=== PATIENT | male | born 1990 | race American Indian/Alaskan Native ===

== ENCOUNTER 2017-04-04 07:27 | Emergency (ER) | payer OTHER ==
[2017-04-04] MEDS ORDERED: TORADOL IV ONE (09:54)
[2017-04-04] MEDS ORDERED: NACL 0.9% 1000 ML 1,000 ML IV ONE (09:54)
--- NOTE | 2017-04-04 09:56 | Emergency Department Report ---
ED General Adult HPI - General Chief complaint: Skin/Abscess/Foreign Body Stated complaint: R SIDE CHEST SWOLLEN/POSS INSECT BITE Time Seen by Provider: 04/04/17 09:45 Source: patient Mode of arrival: Ambulatory Limitations: No Limitations - History of Present Illness Initial comments: PT states he had a bug bite on his R chest wall that he noticed 1 week ago. PT tried to treat with home remedies, pt states he applied ICEY HOT. Pt states that the swelling and redness has gotten bigger. PT states last night he applied peroxide and the site started draining blood last night. PT states this morning, his pain was so severe, that he could not lift his R arm. Complaint: abscess Onset/Timin -: Gradual, week(s) Location: chest Radiation: non-radiation Severity scale (0 -10): 7 Quality: constant Consistency: constant Improves with: none Worsens with: movement Associated Symptoms: chest pain (at site of infection ), fever/chills. denies: loss of appetite, nausea/vomiting Treatments Prior to Arrival: none - Related Data Previous Rx's Medication Instructions Recorded Last Taken Type Acetaminophen/Codeine [Tylenol #3] 1 tab PO Q6H PRN #12 tab 04/04/17 Unknown Rx Clindamycin [Clindamycin CAP] 300 mg PO Q8H #30 cap 04/04/17 Unknown Rx Ibuprofen [Motrin] 600 mg PO Q8H PRN #15 tablet 04/04/17 Unknown Rx metFORMIN [Glucophage] 500 mg PO QDAY #30 tab 04/04/17 Unknown Rx Allergies Allergy/AdvReac Type Severity Reaction Status Date / Time No Known Allergies Allergy Unverified 04/04/17 07:55 ED Review of Systems ROS: Stated complaint: R SIDE CHEST SWOLLEN/POSS INSECT BITE Other details as noted in HPI Comment: All other systems reviewed and negative Constitutional: chills, fever Cardiovascular: chest pain (at site of infection ) Endocrine: denies: increased thirst, increased urine Gastrointestinal: denies: abdominal pain, nausea, vomiting Skin: rash, change in color ED Past Medical Hx - Past Medical History Previous Medical History?: Yes Hx Diabetes: Yes - Surgical History Past Surgical History?: No - Social History Smoking Status: Current Some Day Smoker Substance Use Type: Alcohol - Medications Home Medications: Home Medications Medication Instructions Recorded Confirmed Last Taken Type Acetaminophen/Codeine [Tylenol #3] 1 tab PO Q6H PRN #12 tab 04/04/17 Unknown Rx Clindamycin [Clindamycin CAP] 300 mg PO Q8H #30 cap 04/04/17 Unknown Rx Ibuprofen [Motrin] 600 mg PO Q8H PRN #15 tablet 04/04/17 Unknown Rx metFORMIN [Glucophage] 500 mg PO QDAY #30 tab 04/04/17 Unknown Rx ED Physical Exam - General Limitations: No Limitations General appearance: alert, in no apparent distress - Head Head exam: Present: atraumatic, normocephalic, normal inspection - Eye Eye exam: Present: normal appearance, EOMI. Absent: conjunctival injection - ENT ENT exam: Present: normal exam, normal external ear exam - Neck Neck exam: Present: normal inspection, full ROM. Absent: tenderness, lymphadenopathy - Respiratory Respiratory exam: Present: normal lung sounds bilaterally, chest wall tenderness (to abscess and surrounding cellulitis on R chest wall. cellulitis extends from sternum to mid axilla ). Absent: respiratory distress, wheezes - Cardiovascular Cardiovascular Exam: Present: regular rate, normal rhythm, normal heart sounds - GI/Abdominal GI/Abdominal exam: Present: soft. Absent: tenderness - Extremities Exam Extremities exam: Present: normal inspection, full ROM. Absent: tenderness - Back Exam Back exam: Present: normal inspection, full ROM - Neurological Exam Neurological exam: Present: alert, oriented X3 - Psychiatric Psychiatric exam: Present: normal affect, normal mood - Skin Skin exam: Present: warm, dry, intact, erythema (to R chest wall ) - Expanded Skin Exam Expanded Distribution of rash: chest Description of rash: Present: erythematous, fluctuant, indurated, other (PT has a R chest wall abscess with small area of fluctuance surrounded by indurated area and cellulitis ) ED Course Vital Signs 04/04/17 04/04/17 04/04/17 07:51 10:28 10:58 Temperature 98.6 F Pulse Rate 95 H Respiratory 16 18 18 Rate Blood Pressure 139/85 O2 Sat by Pulse 100 Oximetry 04/04/17 11:45 Temperature Pulse Rate Respiratory 18 Rate Blood Pressure O2 Sat by Pulse Oximetry - Reevaluation(s) Reevaluation #1: 04/04/17 09:58 PT aware of plan of care. PT has no questions at this time Reevaluation #2: 04/04/17 12:12 PT tolerated the I and D well. PT states he is out of Metformin. Will refill. PT aware he will need to return in 2 days. PT has no questions at this time. - I & D Right Anterior Chest Type of Procedure: Complex Site: R chest wall Blade Size: 11 I & D Procedure: betadine prep, sterile drapes applied, sterile dressing applied , gauze wick placed (1/4 iodofoam packing placed ) Progress: skin cleansed with betadine. 2 mls 1% lidocaine used to anaesthetize the area. 11 blade used to make an incision, copious amount of purulent drainage noted. site flushed with sterile NS. and packing placed. pt tolerated the procedure well. no immediate compilations - Pulse Oximetry Interpretation Digit-Finger Initial Pulse Oximetry Readin Actions Taken: none ED Medical Decision Making - Lab Data Result diagrams: 04/04/17 09:54 04/04/17 09:54 Lab Results 04/04/17 04/04/17 04/04/17 Range/Units 09:54 09:54 10:41 WBC 10.0 (4.5-11.0) K/mm3 RBC 4.45 (3.65-5.03) M/mm3 Hgb 12.2 (11.8-15.2) gm/dl Hct 37.4 (35.5-45.6) % MCV 84 (84-94) fl MCH 27 L (28-32) pg MCHC 33 (32-34) % RDW 13.3 (13.2-15.2) % Plt Count 196 (140-440) K/mm3 Lymph % (Auto) 12.4 L (13.4-35.0) % [place] % (Auto) 10.5 H (0.0-7.3) % Eos % (Auto) 0.2 (0.0-4.3) % Baso % (Auto) 0.3 (0.0-1.8) % Lymph # 1.2 (1.2-5.4) K/mm3 [place] # 1.0 H (0.0-0.8) K/mm3 Eos # 0.0 (0.0-0.4) K/mm3 Baso # 0.0 (0.0-0.1) K/mm3 Seg Neutrophils % 76.6 H (40.0-70.0) % Seg Neutrophils # 7.6 (1.8-7.7) K/mm3 VBG pH (7.320-7.420) Sodium 134 L (137-145) mmol/L Potassium 4.2 (3.6-5.0) mmol/L Chloride 93.9 L (98-107) mmol/L Carbon Dioxide 18 L (22-30) mmol/L Anion Gap 26 mmol/L BUN 7 L (9-20) mg/dL Creatinine 0.7 L (0.8-1.5) mg/dL Estimated GFR > 60 ml/min BUN/Creatinine Ratio 10.00 % Glucose 266 H (75-100) mg/dL Lactic Acid 0.90 (0.7-2.0) mmol/L Calcium 8.7 (8.4-10.2) mg/dL 04/04/17 Range/Units 10:41 WBC (4.5-11.0) K/mm3 RBC (3.65-5.03) M/mm3 Hgb (11.8-15.2) gm/dl Hct (35.5-45.6) % MCV (84-94) fl MCH (28-32) pg MCHC (32-34) % RDW (13.2-15.2) % Plt Count (140-440) K/mm3 Lymph % (Auto) (13.4-35.0) % [place] % (Auto) (0.0-7.3) % Eos % (Auto) (0.0-4.3) % Baso % (Auto) (0.0-1.8) % Lymph # (1.2-5.4) K/mm3 [place] # (0.0-0.8) K/mm3 Eos # (0.0-0.4) K/mm3 Baso # (0.0-0.1) K/mm3 Seg Neutrophils % (40.0-70.0) % Seg Neutrophils # (1.8-7.7) K/mm3 VBG pH 7.319 L (7.320-7.420) Sodium (137-145) mmol/L Potassium (3.6-5.0) mmol/L Chloride (98-107) mmol/L Carbon Dioxide (22-30) mmol/L Anion Gap mmol/L BUN (9-20) mg/dL Creatinine (0.8-1.5) mg/dL Estimated GFR ml/min BUN/Creatinine Ratio % Glucose (75-100) mg/dL Lactic Acid (0.7-2.0) mmol/L Calcium (8.4-10.2) mg/dL - Differential Diagnosis abscess, cellulitis Critical Care Time: No Critical care attestation.: If time is entered above; I have spent that time in minutes in the direct care of this critically ill patient, excluding procedure time. ED Disposition Clinical Impression: Abscess or cellulitis of chest wall, Need for Tdap vaccination Hyperglycemia due to type 2 diabetes mellitus Qualifiers: Diabetes mellitus exterminator helper insulin use: without exterminator helper use Qualified Code(s ): E11.65 - Type 2 diabetes mellitus with hyperglycemia Disposition: - TO HOME OR SELFCARE Is pt being admited?: No Does the pt Need Aspirin: No Condition: Stable Instructions: Diabetes Mellitus Type 2 in Adults (ED), Abscess (ED), Abscess Incision and Drainage (ED), Cellulitis (ED) Additional Instructions: No driving or alcohol after taking Tylenol #3 for pain Return to the ED in 2 days for packing removal Warm compresses at least 4 times a day to R chest wall Good hand hygiene follow up with PCP in 3-5 days Prescriptions: Acetaminophen/Codeine [Tylenol #3] 1 tab PO Q6H PRN #12 tab PRN Reason: Pain , Severe (7-10) Clindamycin [Clindamycin CAP] 300 mg PO Q8H #30 cap Ibuprofen [Motrin] 600 mg PO Q8H PRN #15 tablet PRN Reason: Pain metFORMIN [Glucophage] 500 mg PO QDAY #30 tab Referrals: PRIMARY CAREMD [Primary Care Provider] - 3-5 Days ARACELI GUERRERO MD [Staff Physician] - 3-5 Days [facility] [Outside] - 3-5 Days Forms: Work/School Release Form(ED) Time of Disposition: 12:22
[2017-04-04 10:52] LABS: Basophils % (Auto) 0.3 % (0.0-1.8); Eosinophils % (Auto) 0.2 % (0.0-4.3); Hematocrit 37.4 % (35.5-45.6); Hemoglobin 12.2 gm/dl (11.8-15.2); Mean Corpuscular HGB Conc 33 % (32-34); Mean Corpuscular Hemoglobin 27 pg (28-32); Mean Corpuscular Volume 84 fl (84-94); Platelet Count 196 K/mm3 (140-440); Red Blood Count 4.45 M/mm3 (3.65-5.03); Red Cell Distribution Width 13.3 % (13.2-15.2)
[2017-04-04] MEDS ORDERED: BOOSTRIX IM ONE (10:56)
[2017-04-04] MEDS ORDERED: NACL 0.9% IR ONE (10:56)
[2017-04-04] MEDS ORDERED: XYLOCAINE 1% 20 mL INFILTRATI ONE (10:56)
[2017-04-04] MEDS ORDERED: CLEOCIN 600 MG/50 mL 600 MG/50 ML BAG IV ONE (10:57)
[2017-04-04 11:05] LABS: Anion Gap 26 mmol/L; Blood Urea Nitrogen 7 mg/dL (9-20); Calcium 8.7 mg/dL (8.4-10.2); Carbon Dioxide 18 mmol/L (22-30); Chloride 93.9 mmol/L (98-107); Glucose 266 mg/dL (75-100); Potassium 4.2 mmol/L (3.6-5.0); Sodium 134 mmol/L (137-145)
[2017-04-04] MEDS ORDERED: ZOFRAN IV ONE (11:22)
[2017-04-04] MEDS ORDERED: MORPHINE IV ONE (11:22)
[2017-04-04 12:46] VITALS: BP 136/82
== END 2017-04-04 13:00 | disposition home or self-care (01) ==
LOC: ED 07:27
DX: L02.213 Cutaneous abscess of chest wall (principal); E11.65 Type 2 diabetes mellitus with hyperglycemia; Z72.0 Tobacco use
CPT/HCPCS: 10061; 36415; 80048; 82140; 82805; 85025; 90471; 90715; 96361; 96365; 96375; 99283; J1885; J2270; J2405; J7030

== ENCOUNTER 2017-04-06 06:29 | Emergency (ER) | payer OTHER ==
[2017-04-06 06:47] VITALS: BP 156/109
--- NOTE | 2017-04-06 07:53 | Emergency Department Report ---
ED Recheck HPI - General Chief Complaint: Skin/Abscess/Foreign Body Stated Complaint: WOUND RECHECK Time Seen by Provider: 04/06/17 07:34 Source: patient Mode of arrival: Ambulatory Limitations: No Limitations - History of Present Illness Initial Comments: This is a 26-year-old male nontoxic, well nourished in appearance, no acute signs of distress the present to the ED with packing removal status post I&D that was performed in the ED on 04/04/17. Patient stated he is currently taking his antibiotic that was prescribed hi, clindamycin 300 mg. Patient denies any swelling. Patient states feels much better and denies chest pain. Patient denies any fever, chills, headache, stiff neck, pus, drainage, numbness , tingling nausea or vomiting. MD Complaint: wound re-check -: Gradual, days(s) (2) Initial Visit For: abscess Returns Today for: wound recheck Symptoms Since Prior Visit: no new symptoms Context: planned re-check Associated Symptoms: none. denies: fever, chills, chest pain, shortness of breath, rash, malaise, [place], abdominal pain - Related Data Previous Rx's Medication Instructions Recorded Last Taken Type Acetaminophen/Codeine [Tylenol #3] 1 tab PO Q6H PRN #12 tab 04/04/17 Unknown Rx Clindamycin [Clindamycin CAP] 300 mg PO Q8H #30 cap 04/04/17 Unknown Rx Ibuprofen [Motrin] 600 mg PO Q8H PRN #15 tablet 04/04/17 Unknown Rx metFORMIN [Glucophage] 500 mg PO QDAY #30 tab 04/04/17 Unknown Rx Allergies Allergy/AdvReac Type Severity Reaction Status Date / Time No Known Allergies Allergy Unverified 04/04/17 07:55 ED Review of Systems ROS: Stated complaint: WOUND RECHECK Other details as noted in HPI Constitutional: denies: chills, fever Eyes: denies: eye pain, eye discharge, vision change ENT: denies: ear pain, throat pain Respiratory: denies: cough, shortness of breath, wheezing Cardiovascular: denies: chest pain, palpitations Endocrine: no symptoms reported Gastrointestinal: denies: abdominal pain, nausea, diarrhea Genitourinary: denies: urgency, dysuria Musculoskeletal: denies: back pain, joint swelling, arthralgia Skin: denies: rash, lesions Neurological: denies: headache, weakness, paresthesias Psychiatric: denies: anxiety, depression Hematological/Lymphatic: denies: easy bleeding, easy bruising ED Past Medical Hx - Past Medical History Previous Medical History?: Yes Hx Diabetes: Yes - Surgical History Past Surgical History?: No - Social History Smoking Status: Current Some Day Smoker Substance Use Type: Alcohol - Medications Home Medications: Home Medications Medication Instructions Recorded Confirmed Last Taken Type Acetaminophen/Codeine [Tylenol #3] 1 tab PO Q6H PRN #12 tab 04/04/17 Unknown Rx Clindamycin [Clindamycin CAP] 300 mg PO Q8H #30 cap 04/04/17 Unknown Rx Ibuprofen [Motrin] 600 mg PO Q8H PRN #15 tablet 04/04/17 Unknown Rx metFORMIN [Glucophage] 500 mg PO QDAY #30 tab 04/04/17 Unknown Rx ED Physical Exam - General Limitations: No Limitations General appearance: alert, in no apparent distress - Head Head exam: Present: atraumatic, normocephalic, normal inspection - Eye Eye exam: Present: normal appearance, PERRL, EOMI. Absent: scleral icterus, conjunctival injection, nystagmus, periorbital swelling, periorbital tenderness Pupils: Present: normal accommodation - ENT ENT exam: Present: normal exam, normal orophraynx, mucous membranes moist, TM's normal bilaterally, normal external ear exam - Neck Neck exam: Present: normal inspection, full ROM. Absent: tenderness, meningismus, lymphadenopathy, thyromegaly - Respiratory Respiratory exam: Present: normal lung sounds bilaterally. Absent: respiratory distress, wheezes, rales, rhonchi, stridor, chest wall tenderness, accessory muscle use, decreased breath sounds, prolonged expiratory - Cardiovascular Cardiovascular Exam: Present: regular rate, normal rhythm, normal heart sounds. Absent: bradycardia, tachycardia, irregular rhythm, systolic murmur, diastolic murmur, rubs, gallop - GI/Abdominal GI/Abdominal exam: Present: soft, normal bowel sounds - Rectal Rectal exam: Present: deferred - Extremities Exam Extremities exam: Present: normal inspection, full ROM, normal capillary refill. Absent: tenderness, pedal edema, joint swelling, calf tenderness - Back Exam Back exam: Present: normal inspection, full ROM. Absent: tenderness, CVA tenderness (R), CVA tenderness (L), muscle spasm, paraspinal tenderness, vertebral tenderness, rash noted - Neurological Exam Neurological exam: Present: alert, oriented X3, CN II-XII intact, normal gait, reflexes normal - Psychiatric Psychiatric exam: Present: normal affect, normal mood - Skin Skin exam: Present: warm, dry, intact, normal color. Absent: rash - Other Other exam information: 1 cm incision with one fourth iodoform present to the right chest. No fluctuance or swelling noted. No redness. No signs of infection noted. There was a sterile 4 x 4 dressing upon arrival. No pus or drainage noted. ED Course Vital Signs 04/06/17 06:42 Temperature 98 F Pulse Rate 72 Respiratory 18 Rate Blood Pressure 156/109 [Right] O2 Sat by Pulse 100 Oximetry - Reevaluation(s) Reevaluation #1: 04/06/17 07:53 Patient speaking in full sentences with no sign distress. ED Recheck MDM - Medical Decision Making This is a 18-year-old male that presents with an I&D packing removal. I removed one fourth iodoform about 2 inches from the wound. Upon removing there was slight pus noted. No fluctuance or swelling noted. No redness. No cellulitis noted. Patient stated still taking clindamycin that was prescribed. Upon removal I flushed the wound with normal saline and applied sterile 4 x 4 with tape. I struck to the patient's extremities take a full course of antibiotics was prescribed. I also instructed patient that if any swelling or increased pus, drainage noted fever or chills return to emergency room as soon as possible. Critical care attestation.: If time is entered above; I have spent that time in minutes in the direct care of this critically ill patient, excluding procedure time. ED Disposition Clinical Impression: Encounter for wound re-check Disposition: DC-01 TO HOME OR SELFCARE Is pt being admited?: No Does the pt Need Aspirin: No Condition: Stable Instructions: Acute Wound Care (ED), Abscess Incision and Drainage (ED) Additional Instructions: if any swelling or increased pus, drainage noted fever or chills return to emergency room as soon as possible. Continue taking full course of antibiotics that was prescribed. Keep area dry and clean. Good hygiene. Referrals: PRIMARY CARE, [Primary Care Provider] - 3-5 Days [facility] [Outside] - 3-5 Days [facility] [Outside] - 3-5 Days JAKY FELTON JR, MD [Staff Physician] - 3-5 Days Forms: Work/School Release Form(ED)
== END 2017-04-06 08:01 | disposition home or self-care (01) ==
LOC: ED 06:29
DX: Z48.00 Encounter for change or removal of nonsurgical wound dressing (principal); E11.9 Type 2 diabetes mellitus without complications; Z72.0 Tobacco use
CPT/HCPCS: 99282

== ENCOUNTER 2018-03-13 16:04 | Emergency (ER) | payer OTHER ==
--- NOTE | 2018-03-13 18:52 | Ultrasound Report ---
FINAL REPORT EXAM: US TESTICULAR DOPPLER COMP HISTORY: right scrotal swelling and pain TECHNIQUE: Ultrasound scrotum with Doppler evaluation PRIORS: None. FINDINGS: Right testicle is 4.2 x 2.0 x 2.6 centimeters. There is normal echogenicity and vascular flow within the testicle There is a 4.4 x 2.1 x 2.9 centimeter masslike irregular echogenic focus seen adjacent to the right testicle without internal vascular flow suspicious for scrotal abscess.. The epididymis is not well seen. Left testicle is 3.5 x 2.1 x 2.3 centimeters. Normal echogenicity and vascular flow on pulsed and color Doppler evaluation. There is a left epididymal cyst 1.2 x 0.8 centimeters. Left epididymis does not appear enlarged. IMPRESSION: Suspect right scrotal abscess likely secondary to epididymitis Left epididymal cyst noted
[2018-03-13 21:06] VITALS: BP 139/91
[2018-03-13] MEDS ORDERED: ROCEPHIN IM ONE (21:07)
[2018-03-13] MEDS ORDERED: XYLOCAINE 1% MPF 5 mL INFILTRATI ONE (21:07)
[2018-03-13] MEDS ORDERED: VIBRAMYCIN PO ONE (21:07)
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
[2018-03-13 21:53] LABS: Bilirubin,Urine NEG (Negative); Blood,Urine NEG (Negative); Color,Urine Straw (Yellow); Mucus,Urine FEW /HPF; Protein,Urine <15 mg/dL mg/dL (Negative); Urobilinogen,Urine < 2.0 mg/dL (<2.0); WBC,Urine < 1.0 /HPF (0.0-6.0)
== END 2018-03-13 23:01 | disposition home or self-care (01) ==
LOC: ED 16:04
DX: N49.2 Inflammatory disorders of scrotum (principal); N45.1 Epididymitis; E11.9 Type 2 diabetes mellitus without complications; Z79.84 Long term (current) use of oral hypoglycemic drugs
CPT/HCPCS: 81001; 87086; 87116; 93975; 96372; 99284; J0696

== ENCOUNTER 2018-03-16 13:57 | Emergency (ER) | payer OTHER | END 2018-03-16 14:46 | disposition left against medical advice (07) | LOC: ED 13:57 | DX: Z00.00 Encounter for general adult medical examination without abnormal findings (principal); Z53.21 Procedure and treatment not carried out due to patient leaving prior to being seen by health care provider ==

== ENCOUNTER 2019-01-10 21:58 | Emergency (ER) | payer SELFPAY ==
--- NOTE | 2019-01-10 22:12 | Emergency Department Report ---
Blank Doc - Documentation Documentation: 28 y/o male stepped on glass with right foot and comes in to be evaluated. 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 UTD on tetanus. Hx/o DM
[2019-01-10 22:14] VITALS: BP 148/99
--- NOTE | 2019-01-10 22:42 | XRay Report ---
PROCEDURE: XR FOOT 2V RT TECHNIQUE: Right foot radiographs, AP and lateral views. HISTORY: stepped on glass COMPARISONS: None . FINDINGS: Fracture (s) and/or Dislocation(s): None . Alignment: Normal . Joint space(s): Normal . Soft tissues: Normal . Bone mineralization: Normal . Foreign bodies: None . Calcaneal spurring: None . IMPRESSION: Normal Examination . This document is electronically signed by Chano Albert MD., January 10 2019 10:40:35 PM ET
== END 2019-01-11 05:26 | disposition left against medical advice (07) ==
LOC: ED 21:58
DX: M79.671 Pain in right foot (principal); Z53.21 Procedure and treatment not carried out due to patient leaving prior to being seen by health care provider